=== PATIENT | male | born 1970 | race Caucasian/White ===

== ENCOUNTER 2016-06-26 20:47 | Emergency (ER) | payer OTHER ==
--- NOTE | 2016-06-26 22:36 | ED HAND/WRIST INJURY COMPLAINT ---
History of Present Illness General Chief Complaint: Laceration Procedure Stated Complaint: LAC TO TOP OF RIGHT HAND Source: patient Exam Limitations: no limitations Vital Signs & Intake/Output Vital Signs & Intake/Output Vital Signs Date Time Temp Pulse Resp B/P Pulse O2 O2 Flow FiO2 Ox Delivery Rate 06/26 2255 98.0 75 18 128/76 98 Room Air 06/267 Room Air 06/26 2056 78 20 136/84 99 Allergies Coded Allergies: No Known Allergies (06/26/16) Triage Note: PER PT WASHING A GLASS AND IT BROKE CRESENT SHAPED LAC ACROSS RT INDEX FINGER KNUCKLE PER PT UTD WITH TETANUS. Triage Nurses Notes Reviewed? yes Occurred: just prior to arrival Duration: minute(s):, hour(s):, constant Timing: single episode today Injury Environment: home Severity: moderate, severe Pain/Injury Location: Right: Hand. Method of Injury: laceration No Modifying Factors: none HPI: 46-year-old male comes into emergency room for further evaluation of laceration to right hand. Patient cut his right hand on a piece of glass when he was washing a pint glass. Large laceration. Tetanus shot up-to-date. Sharp throbbing pain. Continuous. Denies any other associated symptoms. (ANTHONY RUTLEDGE) Past History Travel History Traveled to [place] past 21 day No Medical History Any Pertinent Medical History? see below for history Neurological: NONE EENT: NONE Cardiovascular: hypertension Respiratory: NONE Gastrointestinal: NONE Hepatic: NONE Renal: NONE Musculoskeletal: NONE Psychiatric: NONE Endocrine: NONE Surgical History Surgical History: non-contributory Psychosocial History What is your primary language Occitan Tobacco Use: Never used Family History Hx Contributory? No (ANTHONY RUTLEDGE) Review of Systems Review of Systems Constitutional: Reports: no symptoms. EENTM: Reports: no symptoms. Respiratory: Reports: no symptoms. Cardiovascular: Reports: no symptoms. GI: Reports: no symptoms. Genitourinary: Reports: no symptoms. Musculoskeletal: Reports: see HPI. Skin: Reports: see HPI. Neurological/Psychological: Reports: no symptoms. Hematologic/Endocrine: Reports: no symptoms. Immunologic/Allergic: Reports: no symptoms. All Other Systems: Reviewed and Negative (ANTHONY RUTLEDGE) Physical Exam Physical Exam General Appearance: well developed/nourished, mild distress Head: atraumatic Eyes: Bilateral: normal appearance. Ears, Nose, Throat: normal ENT inspection, hearing grossly normal Neck: normal inspection Cardiovascular/Respiratory: no respiratory distress Back: normal inspection Hand Left: normal inspection Hand Right: large skin flap between first and second metacarpals, tendon sheath exposed, no evidence of tendon laceration, full range of motion, Neurologic/Tendon: normal sensation, normal motor functions, normal tendon functions, responds to pain, no evidence tendon injury, no pulse deficit Skin: intact, normal color, warm/dry Lymphatic: no anterior cervical queenie (ANTHONY RUTLEDGE) Progress Differential Diagnosis: fracture, gout, paronychia, septic arthritis, sprain, tenosynovitis, soft tissue foreign body, tendon laceration, Plan of Care: Patient clinically looks well. Complex laceration. Tolerated procedure well. Follow-up for a wound check in 3 days. (ANTHONY RUTLEDGE) Departure Departure Disposition: HOME OR SELF CARE Condition: Stable Clinical Impression Primary Impression: Laceration of hand Referrals: JOSE BELTRAN,ALEXSANDRA Sparks (PCP/Family) Additional Instructions: Return in 10 days for suture removal. Return in 3 days for a wound check. Keep covered with bacitracin and dry dressing. Stay in splint until stitches come out. Return if any other concerns worsening symptoms. Follow-up with your primary care physician this week. Return to the emergency room at any time sooner if you have worsening of your symptoms or any other concerns. Please note that there might be incidental findings in your evaluation that are unrelated to the current emergency department visit. Please notify your primary care doctor about this emergency department visit in order to obtain and review all of the testing performed so that these incidental findings can be monitored as needed. If you were prescribed a narcotic use caution as this medication is highly addictive and will make you drowsy use for breakthrough pain only. No driving, drinking alcohol or operating machinary when taking. If you had an x-ray performed, please understand that some fractures may not be seen on the initial set of x-rays. If your symptoms persist you might need a repeat set of x-rays to check for such a fracture. If you had a laceration evaluated, please understand that foreign bodies such as glass or wood may not be visible to the naked eye or on plain x-rays. If the wound becomes red, swollen, increasingly more painful or if there is any drainage from the wound, please have it reevaluated by a physician for the possibility of a retained foreign body. Departure Forms: Customer Survey General Discharge Information (ANTHONY RUTLEDGE) PA/ENGINEERING FACULTY MEMBER Co-Sign Statement Statement: ED Attending supervision documentation- [] I saw and evaluated the patient. I have also reviewed all the pertinent lab results and diagnostic results. I agree with the findings and the plan of care as documented in the PA's/ENGINEERING FACULTY MEMBER's documentation. x I have reviewed the ED Record and agree with the PA's/ENGINEERING FACULTY MEMBER's documentation. [] Additions or exceptions (if any) to the PAs/ENGINEERING FACULTY MEMBER's note and plan are summarized below: [] (VALERY BELTRAN,KD) Procedures Laceration/Wound Repair Progress: Betadine prep, 6 mL of 1% lidocaine injected, sterile technique, irrigated with copious amounts of saline, 4. 0 nylon use, 2 mattress sutures, 8 regular simple interrupted stitches, well approximated, no evidence of foreign body, bacitracin and dry sterile dressing placed, tetanus shot up-to-date, (ANTHONY RUTLEDGE)
[2016-06-26 22:55] VITALS: BP 128/76
== END 2016-06-26 22:57 ==
LOC: ERH 20:47
DX: S61.411A Laceration without foreign body of right hand, initial encounter (principal); W25.XXXA Contact with sharp glass, initial encounter; Y93.G1 Activity, food preparation and clean up; Y92.009 Unspecified place in unspecified non-institutional (private) residence as the place of occurrence of the external cause

== ENCOUNTER 2016-06-29 12:30 | Emergency (ER) | payer OTHER ==
[~2016-06-29] VITALS: Ht 188 cm; Wt 88.5 kg
[2016-06-29 12:47] VITALS: BP 127/82
--- NOTE | 2016-06-29 13:23 | ED CP South Admission Exam ---
ED Psychiatric Admission Note Condition Stable
[2016-06-29] MEDS ORDERED: KEFLEX500 M1 PO (13:29)
--- NOTE | 2016-06-29 13:30 | ED SKIN/ALLERGY COMPLAINT ---
History of Present Illness General Chief Complaint: General Adult Stated Complaint: WOUND CHECK Source: patient Exam Limitations: no limitations Vital Signs & Intake/Output Vital Signs & Intake/Output ED Intake and Output 06/30 0000 06/29 1200 Intake Total Output Total Balance Patient 195 lb Weight Allergies Coded Allergies: No Known Allergies (06/26/16) Triage Note: RECEIVED 46 YO MALE RETURNING TODAY FOR WOUND RE-EVALUATION OF RIGHT HAND. PT WAS LAST HERE THURSDAY NIGHT, SEEN ANTHONY GEIGER Triage Nurses Notes Reviewed? yes HPI: This patient is a 46-year-old male who presented to the emergency department today for evaluation of wound check. This patient a laceration repair 3 days ago to the dorsum of his right hand. The patient denied any pain. He reported that it seems to be swelling slightly. He denied any fevers, chills, pus drainage from the wound site. The patient denied any other associated symptoms. He has been keeping the wound site clean and dry (SUSAN CHAVEZ PA-C) Reconcile Medications Cephalexin (Keflex) 500 MG CAPSULE 1 CAP PO TID cellulitis (DEVAN BELTRAN,JAROD) Past History Travel History Traveled to [place] past 21 day No Medical History Any Pertinent Medical History? see below for history Neurological: NONE EENT: NONE Cardiovascular: hypertension Respiratory: NONE Gastrointestinal: NONE Hepatic: NONE Renal: NONE Musculoskeletal: NONE Psychiatric: NONE Endocrine: NONE Surgical History Surgical History: non-contributory Psychosocial History What is your primary language Spanish Tobacco Use: Current Daily Use Daily Tobacco Use Amount/Type: => 5 Cigarettes daily Family History Hx Contributory? No (SUSAN CHAVEZ PA-C) Review of Systems Review of Systems Constitutional: Reports: no symptoms. EENTM: Reports: no symptoms. Respiratory: Reports: no symptoms. Cardiovascular: Reports: no symptoms. GI: Reports: no symptoms. Musculoskeletal: Reports: no symptoms. Skin: Reports: see HPI. All Other Systems: Reviewed and Negative (SUSAN CHAVEZ PA-C) Physical Exam Physical Exam General Appearance: well developed/nourished, no apparent distress, alert, awake Comments: Well-developed well-nourished person in no acute distress HEENT: Moist mucous membranes Neck: Supple, no lymphadenopathy Back: Normal gait Respiratory: No respiratory distress. Speaking in full sentences Extremities: No edema, full range of motion Neuro: Alert and oriented x3 Psych: Mood affect normal, normal memory normal judgment. Skin: Warm and dry. Stitches in place to the dorsum of the right hand. [place] was running erythema and edema. No pus drainage from the wound site. Nontender to palpation (SUSAN CHAVEZ PA-C) Progress Differential Diagnosis: abscess/cellulitis, allergic reaction Plan of Care: This patient is a 46-year-old male who presented for a wound check. Mild amount of surrounding erythema and edema. The patient will be discharged with outpatient antibiotic therapy. He will return 10 days from his suture placement for a suture removal and wound check. (SUSAN CHAVEZ PA-C) Departure Departure Disposition: HOME OR SELF CARE Condition: Stable Clinical Impression Primary Impression: Visit for wound check Referrals: JOSE BELTRAN,ALEXSANDRA Sparks (PCP/Family) Additional Instructions: Take antibiotics as prescribed in for the full duration. Keep the wound site clean and dry. Return as previously directed for suture removal. Departure Forms: Customer Survey General Discharge Information Prescriptions: Current Visit Scripts Cephalexin (Keflex) 1 CAP PO TID #30 CAP (SUSAN CHAVEZ PA-C) PA/BUSINESS INTELLIGENCE ARCHITECT Co-Sign Statement Statement: ED Attending supervision documentation- [] I saw and evaluated the patient. I have also reviewed all the pertinent lab results and diagnostic results. I agree with the findings and the plan of care as documented in the PA's/BUSINESS INTELLIGENCE ARCHITECT's documentation. [X] I have reviewed the ED Record and agree with the PA's/BUSINESS INTELLIGENCE ARCHITECT's documentation. [] Additions or exceptions (if any) to the PAs/BUSINESS INTELLIGENCE ARCHITECT's note and plan are summarized below: [] (DEVAN BELTRAN,JAROD)
== END 2016-06-29 13:32 ==
LOC: ERH 12:30
DX: M79.89 Other specified soft tissue disorders (principal)

== ENCOUNTER 2016-07-07 09:53 | Emergency (ER) | payer OTHER ==
[~2016-07-07] VITALS: Ht 188 cm; Wt 88.5 kg
[~2016-07-07 09:53] MED LIST: KEFLEX500 M1 PO
[2016-07-07 10:01] VITALS: BP 151/88
--- NOTE | 2016-07-07 10:06 | ED ANIMAL BITE/WOUND CHECK ---
History of Present Illness General Chief Complaint: Suture Removal/Wound Recheck Stated Complaint: SUTURE REMOVAL Source: patient, old records Exam Limitations: no limitations Vital Signs & Intake/Output Vital Signs & Intake/Output Vital Signs Date Time Temp Pulse Resp B/P Pulse O2 O2 Flow FiO2 Ox Delivery Rate 07/07 1001 98.8 88 16 151/88 100 Room Air ED Intake and Output 07/08 0000 07/07 1200 Intake Total Output Total Balance Patient 195 lb Weight Allergies Coded Allergies: No Known Allergies (06/26/16) Reconcile Medications Cephalexin (Keflex) 500 MG CAPSULE 1 CAP PO TID cellulitis Triage Note: 46 Y/O MALE REQUESTING SUTURE REMOVAL TO R HAND - 10 PLACED 11 DAYS AGO. PT DENIES ANY COMPLAINTS; STATES SITE HAS HEALED WELL. Triage Nurses Notes Reviewed? yes HPI: Patient is a 46-year-old male presents for suture removal. Patient had the laceration to the dorsum of his right hand 11 days ago while washing dishes. Patient reports pain is 0 out of 10, swelling has resolved. Denies numbness or decreased range of motion of hand. (EFRAIN RATLIFF) Past History Travel History Traveled to [place] past 21 day No Medical History Any Pertinent Medical History? see below for history Neurological: NONE EENT: NONE Cardiovascular: hypertension Respiratory: NONE Gastrointestinal: NONE Hepatic: NONE Renal: NONE Musculoskeletal: NONE Psychiatric: NONE Endocrine: NONE Surgical History Surgical History: non-contributory Psychosocial History What is your primary language Iranian Tobacco Use: Current Daily Use Daily Tobacco Use Amount/Type: => 5 Cigarettes daily Family History Hx Contributory? No (EFRAIN RATLIFF) Review of Systems Review of Systems Constitutional: Denies: fever. Musculoskeletal: Reports: see HPI. Skin: Reports: see HPI. Neurological/Psychological: Denies: numbness, paresthesia. Hematologic/Endocrine: Denies: bruising, bleeding. Immunologic/Allergic: Denies: splenectomy. (EFRAIN RATLIFF) Physical Exam Physical Exam General Appearance: well developed/nourished, alert, awake Head: atraumatic Eyes: Bilateral: normal appearance. Ears, Nose, Throat: hearing grossly normal Neck: normal inspection, full range of motion Respiratory: no respiratory distress Back: normal range of motion Extremities: wound to dorsum of right hand over the distal first metacarpal. no surrounding erythema, no drainage. Small area in the center of the wound with 1mm gap. Neurologic/Psych: no motor/sensory deficits, awake, alert, oriented x 3, normal gait, normal mood/affect Skin: see hand exam. (EFRAIN RATLIFF) Progress Differential Diagnosis: WOUND CHECK, SUTURE REMOVAL, FOREIGN BODY, CELLULITIS Plan of Care: Concerned that wound will dehisce if sutures are removed. No signs of infection currently. Will have patient return in 3 days for recheck and possible suture removal. (EFRAIN RATLIFF) Departure Departure Disposition: HOME OR SELF CARE Condition: Stable Clinical Impression Primary Impression: Encounter for wound re-check Referrals: JOSE BELTRAN,ALEXSANDRA Sparks (PCP/Family) Additional Instructions: Return to the ER in 3 days for recheck and likely suture removal. Return immediately if pus from the wound, redness spreading from the wound, or increasing pain. Departure Forms: Customer Survey General Discharge Information (EFRAIN RATLIFF) PA/BIOINFORMATICS ANALYST Co-Sign Statement Statement: ED Attending supervision documentation- [] I saw and evaluated the patient. I have also reviewed all the pertinent lab results and diagnostic results. I agree with the findings and the plan of care as documented in the PA's/BIOINFORMATICS ANALYST's documentation. [X] I have reviewed the ED Record and agree with the PA's/BIOINFORMATICS ANALYST's documentation. [] Additions or exceptions (if any) to the PAs/BIOINFORMATICS ANALYST's note and plan are summarized below: [] (DEVAN BELTRAN,JAROD)
== END 2016-07-07 10:15 ==
LOC: ERH 09:53
DX: Z48.01 Encounter for change or removal of surgical wound dressing (principal)
CPT/HCPCS: 99281

== ENCOUNTER 2016-07-12 12:29 | Emergency (ER) | payer OTHER ==
[~2016-07-12] VITALS: Ht 188 cm; Wt 88.5 kg
[2016-07-12 12:49] VITALS: BP 129/81
--- NOTE | 2016-07-12 12:59 | ED ANIMAL BITE/WOUND CHECK ---
History of Present Illness General Chief Complaint: Suture Removal/Wound Recheck Stated Complaint: SUTURE REMOVAL Source: patient Exam Limitations: no limitations Vital Signs & Intake/Output Vital Signs & Intake/Output Vital Signs Date Time Temp Pulse Resp B/P B/P Pulse O2 O2 Flow FiO2 Mean Ox Delivery Rate 07/12 1249 98.3 80 16 129/81 97 Room Air Allergies Coded Allergies: No Known Allergies (06/26/16) Triage Note: HERE TO SUTURE REMOVAL ON R HAND. PT REPORTS 10 SUTURES WERE PLACED. NO S/S INFECTION. Triage Nurses Notes Reviewed? yes Onset: Abrupt Duration: 16 days ago Timing: no prior history Injury Environment: home Is Injury an Animal Bite? No Severity: mild Severity Numbers: 1 HPI: Patient is a 46-year-old male presenting to the emergency department with chief complaint of suture removal of right hand. He had sutures placed 16 days ago and is told to return for suture removal because he was applying. Denies any increased redness or pain. No fevers or chills. Past History Travel History Traveled to [place] past 21 day No Medical History Any Pertinent Medical History? see below for history Neurological: NONE EENT: NONE Cardiovascular: hypertension Respiratory: NONE Gastrointestinal: NONE Hepatic: NONE Renal: NONE Musculoskeletal: NONE Psychiatric: NONE Endocrine: NONE Surgical History Surgical History: non-contributory Psychosocial History What is your primary language Cuban Tobacco Use: Never used Family History Hx Contributory? No Review of Systems Review of Systems Constitutional: Reports: no symptoms. Comments Review of systems: See HPI, All other systems negative. Constitutional, no chills fever or weight loss HEENT: No visual changes no sore throat no congestion Cardiovascular: No chest pain Skin, no jaundice no rashes Respiratory: No dyspnea cough sputum or hemoptysis GI: No nausea no vomiting Muscle skeletal: no back pain, no neck pain, Neurologic: No numbness Immunology: No splenectomy or history of AIDS Physical Exam Physical Exam General Appearance: well developed/nourished, no apparent distress, alert, awake , comfortable Comments: Well-developed well-nourished no apparent distress. HEENT: Atraumatic, extraocular motion intact Neck: Supple, no lymphadenopathy Back: Nontender Respiratory: No respiratory distress Extremities: Mild edema noted over the right second metacarpal joint. [address], scabbing present. Wound edges are well approximated but seemed to come apart slightly with small amount of pressure. No surrounding erythema. Full range of motion of all digits without difficulty. Radial pulses are 2+ bilaterally. Capillary refills intact in upper extremities. Neuro: Alert and oriented x3 Psych: Mood affect normal, normal memory normal judgment. Progress Differential Diagnosis: abscess, cellulitis, suture removal, wound check Plan of Care: One stitch was removed, wound edges seem to dehisced slightly. The rest of the sutures will remain in place. He will return in 4 days for another wound check and potentially suture removal. No signs of cellulitis. Departure Departure Time of Disposition: 1258 Disposition: HOME OR SELF CARE Condition: Stable Clinical Impression Primary Impression: Visit for suture removal Referrals: JOSE BELTRAN,ALEXSANDRA Sparks (PCP/Family) Additional Instructions: Return on Thursday for suture removal. Keep clean and dry. Do not put any bacitracin on the area. Intuniv for worsening symptoms or concerns. Departure Forms: Customer Survey General Discharge Information
== END 2016-07-12 13:00 ==
LOC: ERH 12:29
DX: Z48.02 Encounter for removal of sutures (principal)
CPT/HCPCS: 99281

== ENCOUNTER 2016-07-18 18:44 | Emergency (ER) | payer OTHER ==
[~2016-07-18] VITALS: Ht 188 cm; Wt 88.5 kg
[2016-07-18 19:20] VITALS: BP 124/78
--- NOTE | 2016-07-18 19:27 | ED UPPER/LOWER EXTREMITY COMPL ---
History of Present Illness General Chief Complaint: Suture Removal/Wound Recheck Stated Complaint: SUTURE REMOVAL Source: patient Exam Limitations: no limitations Vital Signs & Intake/Output Vital Signs & Intake/Output Vital Signs Date Time Temp Pulse Resp B/P B/P Pulse O2 O2 Flow FiO2 Mean Ox Delivery Rate 07/19 1919 98.6 76 16 124/78 95 Room Air Allergies Coded Allergies: No Known Allergies (06/26/16) Triage Note: TRIAGE: SUTURE REMOVAL OF 9 STITCHES, PLACED 3 WEEKS AGO. APPEARS INTACT, NO S/S INFX. OFFERS NO COMPLAINTS Triage Nurses Notes Reviewed? yes Onset: Abrupt Duration: week(s):, better Timing: recent history Severity: mild Pain/Injury Location: Left: 2nd finger. Method of Injury: "I cut my knuckle washing the dishes." Modifying Factors: Improves With: rest. Associated Symptoms: none HPI: 46 yo gentleman Presents for suture removal. He states that 3 weeks ago he cut his finger on the left second knuckle washing dishes. He states that it has healed well. His sutures are intact. He does not believe there is any infection. He is otherwise well. Past History Travel History Traveled to [place] past 21 day No Medical History Any Pertinent Medical History? see below for history Neurological: NONE EENT: NONE Cardiovascular: hypertension Respiratory: NONE Gastrointestinal: NONE Hepatic: NONE Renal: NONE Musculoskeletal: NONE Psychiatric: NONE Endocrine: NONE Surgical History Surgical History: non-contributory Psychosocial History What is your primary language Romanian Tobacco Use: Quit >30 days ago Daily Tobacco Use Amount/Type: => 5 Cigarettes daily Family History Hx Contributory? No Review of Systems Review of Systems Constitutional: Reports: no symptoms. EENTM: Reports: no symptoms. Respiratory: Reports: no symptoms. Cardiovascular: Reports: no symptoms. Gastrointestinal/Abdominal: Reports: no symptoms. Genitourinary: Reports: no symptoms. Musculoskeletal: Reports: no symptoms. Skin: Reports: no symptoms. Neurological/Psychological: Reports: no symptoms. Hematologic/Endocrine: Reports: no symptoms. Immunological: Reports: no symptoms. All Other Systems: Reviewed and Negative Physical Exam Physical Exam General Appearance: well developed/nourished, mild distress Head: atraumatic Hand Left: 2nd finger, well-healed laceration. Sutures intact. No sign of infection. Range of motion is normal color of skin is normal. Progress Differential Diagnosis: left second finger laceration Plan of Care: Sutures removed without problem. Steri-Strips placed to support the wound Departure Departure Disposition: HOME OR SELF CARE Condition: Stable Clinical Impression Primary Impression: Visit for suture removal Referrals: ALEXSANDRA GARCIA MD (PCP/Family) Departure Forms: Customer Survey General Discharge Information
== END 2016-07-18 19:28 ==
LOC: ERH 18:44
DX: Z48.02 Encounter for removal of sutures (principal)
CPT/HCPCS: 99281